=== PATIENT | female | born 1970 | race Caucasian/White ===

== ENCOUNTER 2020-08-26 15:35 | Emergency (ER) | payer MEDICAID ==
[~2020-08-26] VITALS: Ht 157.5 cm; Wt 64.0 kg
[2020-08-26] MEDS ORDERED: IBUPROFEN 600MG TABLET PO ONE (16:15)
[2020-08-26 18:34] VITALS: BP 148/89
== END 2020-08-26 18:35 | disposition home or self-care (01) ==
LOC: ER 15:35
DX: M54.5 Low back pain (principal)
CPT/HCPCS: 72100; 81025; 99283